=== PATIENT | male | born 1995 | race Caucasian/White ===

== ENCOUNTER 2019-07-06 01:58 | Emergency (ER) | payer SELFPAY ==
[~2019-07-06] VITALS: Ht 185.4 cm; Wt 84.1 kg
[2019-07-06 02:04] VITALS: TEMP 98
[2019-07-06] MEDS ORDERED: CLARITIN D TAB1 TAB PO (02:05)
[2019-07-06] MEDS ORDERED: ADDERALL XR20 MG PO (02:05)
[2019-07-06] MEDS ORDERED: MULTI VITAMINS1 TAB PO (02:05)
[2019-07-06 03:46] VITALS: BP 135/92; PULSE 105
== END 2019-07-06 03:46 | disposition home or self-care (01) ==
LOC: COL.ER 01:58
DX: S43.084A Other dislocation of right shoulder joint, initial encounter (principal); W01.0XXA Fall on same level from slipping, tripping and stumbling without subsequent striking against object, initial encounter
CPT/HCPCS: J2250; J3010